=== PATIENT | female | born 1950 | race Caucasian/White ===

== ENCOUNTER → 2017-01-28 | Outpatient (CLI) | payer MEDICARE, OTHER ==
[~2017-01-28] MED LIST: CALC600T12 PO; CHOL10002 PO; ESCI20TA PO; EST075TD TD; GBPN300C PO; GUAI600T3 PO; MAGN250T PO; MONT5TAB PO; MULT-954 PO; OMEP20TA PO; ROPI0.5T4 PO; VIT500LI PO; [UNRECOGNIZED DRUG - CODE] PO; gas x BC
== END ==
LOC: LAB 08:50
PROVIDERS: ATTEND Internal Medicine
DX: E03.8 Other specified hypothyroidism (principal)
CPT/HCPCS: 36415; 84443